=== PATIENT | male | born 1965 | race Asian ===

== ENCOUNTER 2023-03-23 03:27 | Emergency (ER) | payer OTHER ==
[~2023-03-23] VITALS: Ht 172.7 cm; Wt 63.5 kg
[2023-03-23 03:30] VITALS: TEMP 98
[2023-03-23] MEDS ORDERED: KETOROLAC TROMETHAMINE INJ 60 MG/2 ML VIAL IM ONE ×2 (04:00→04:06)
[2023-03-23] MEDS ORDERED: TDAP [DIPH/PERTUSSIS/TET] 0.5 ML VIAL IM ONE (04:00)
[2023-03-23 05:12] VITALS: BP 139/91; O2SAT 99
== END 2023-03-23 05:13 | disposition home or self-care (01) ==
LOC: ER 03:35
DX: S82.54XA Nondisplaced fracture of medial malleolus of right tibia, initial encounter for closed fracture (principal); S80.211A Abrasion, right knee, initial encounter; Z88.2 Allergy status to sulfonamides; V29.99XA Rider (driver) (passenger) of other motorcycle injured in unspecified traffic accident, initial encounter; Y93.89 Activity, other specified; Y92.89 Other specified places as the place of occurrence of the external cause; Y99.8 Other external cause status
CPT/HCPCS: 99284; 29515; 73610; 73564; 96372; J1885